=== PATIENT | female | born 1985 | race American Indian/Alaskan Native ===

== ENCOUNTER 2019-01-05 12:03 | Emergency (ER) | payer OTHER ==
[2019-01-05 12:14] VITALS: RESP 18; TEMP 98.7; O2SAT 99; BMI 34.7
[2019-01-05] MEDS ORDERED: Lidocaine 5% Patch TD STA (12:31)
--- NOTE | 2019-01-05 12:42 | ED PDOC ---
Arrival/HPI - General Chief Complaint: Upper Extremity Problem/Injury Time Seen by Provider: 01/05/19 12:03 Historian: Patient - History of Present Illness Narrative History of Present Illness (Text): 01/05/19 13:35 33 year old female with no significant PMH presents to the ED c/o left shoulder pain x 3 weeks. Pt works as a hole digger truck driver and states she pulled a muscle in her shoulder turning the steering wheel. Pain is worse with abduction and internal rotation of the left shoulder. Saw her PMD last week, who prescribed 800mg ibuprofen (last dose this morning), with mild relief. Pt is here requesting xray and orthopedic followup. Denies numbness, weakness, paresthesias, chest pain, SOB, palpitations, back pain, neck pain, or any other associated symptoms. Past Medical History - Provider Review Nursing Documentation Reviewed: Yes - Cardiac Hx Cardiac Disorders: No - Psychiatric Hx Substance Use: Yes Family/Social History - Physician Review Nursing Documentation Reviewed: Yes Family/Social History: No Known Family HX Smoking Status: Current Some Days Smoker Hx Alcohol Use: No Hx Substance Use: Yes Substance used: marijuana Allergies/Home Meds Allergies/Adverse Reactions: Allergies No Known Allergies Allergy (Verified 01/05/19 12:25) Review of Systems - Review of Systems Constitutional: Normal. absent: Fevers Eyes: Normal. absent: Vision Changes ENT: Normal. absent: Sore Throat, Sinus Congestion Respiratory: Normal. absent: SOB, Cough Cardiovascular: Normal. absent: Chest Pain, Palpitations Gastrointestinal: Normal. absent: Abdominal Pain, Nausea, Vomiting Genitourinary Female: Normal. absent: Dysuria, Frequency Musculoskeletal: Arthralgias. absent: Back Pain, Neck Pain Skin: Normal. absent: Rash, Cellulitis Neurological: Normal. absent: Headache, Dizziness, Focal Weakness, Disequilibrium Endocrine: Normal Hemo/Lymphatic: Normal Psychiatric: Normal Physical Exam Vital Signs Reviewed: Yes Vital Signs Temp Pulse Resp BP Pulse Ox 01/05/19 12:13 98.7 F 89 18 125/81 99 Temperature: Afebrile Blood Pressure: Normal Pulse: Regular Respiratory Rate: Normal Appearance: Positive for: Well-Appearing, Non-Toxic, Comfortable Pain Distress: None Mental Status: Positive for: Alert and Oriented X 3 - Systems Exam Head: Present: Atraumatic, Normocephalic Pupils: Present: PERRL Extroacular Muscles: Present: EOMI Conjunctiva: Present: Normal Mouth: Present: Moist Mucous Membranes Neck: Present: Normal Range of Motion. No: Meningeal Signs, MIDLINE TENDERNESS, Paraspinal Tenderness Respiratory/Chest: Present: Clear to Auscultation, Good Air Exchange. No: Respiratory Distress, Accessory Muscle Use Cardiovascular: Present: Regular Rate and Rhythm, Normal S1, S2, Peripheal Pulses Present. No: Murmurs Back: Present: Normal Inspection. No: CVA Tenderness, Midline Tenderness, Paraspinal Tenderness Upper Extremity: Present: Normal Inspection, NORMAL PULSES, Tenderness (anterior left shoulder and over left biceps tendon), Neurovascularly Intact, Capillary Refill < 2s, Other ((+) True Test, (+) Neers Test). No: Cyanosis, Edema, Normal ROM (decreased abduction and internal rotation of left shoulder), Swelling, Erythema, Temperature Abnormalties, Deformity Lower Extremity: Present: Normal ROM Neurological: Present: GCS=15, CN II-XII Intact, Speech Normal, Motor Func G rossly Intact, Normal Sensory Function, Gait Normal Skin: Present: Warm, Dry, Normal Color. No: Rashes, Laceration, Abscess Psychiatric: Present: Alert, Oriented x 3, Normal Insight, Normal Concentration, Normal Affect, Normal Mood Medical Decision Making ED Course and Treatment: Initial Plan: * Left shoulder XR * Tylenol * Lidoderm patch Xray negative for acute or chronic pathology. Physical exam findings suspicious for tendinopathy. Advised orthopedic and PMD followup. Will discharge with prescriptions to treat pain. Diagnostic testing results and plan of care discussed with patient. Strict instructions given regarding prescription use, importance of followup, and signs/symptoms to return to ER including numbness, weakness, paresthesias, chest pain, SOB, or any other new/worsening symptoms. Pt verbalized understanding of discussion. Patient is A&Ox3, ambulating with steady gait, with vital signs stable for discharge. - RAD Interpretation Narrative RAD Interpretations (Text): 01/05/19 14:30 Left Shoulder Xray: FINDINGS: BONES: Normal. No fracture. JOINTS: Normal. Glenohumeral and acromioclavicular joints preserved. No osteoarthritis. SOFT TISSUES: Normal. OTHER FINDINGS: None. IMPRESSION: Normal radiographs of the left shoulder. Disposition/Present on Arrival - Present on Arrival Any Indicators Present on Arrival: No History of DVT/PE: No History of Uncontrolled Diabetes: No Urinary Catheter: No History of Decub. Ulcer: No History Surgical Site Infection Following: None - Disposition Have Diagnosis and Disposition been Completed?: Yes Diagnosis: Tendonitis Disposition: HOME/ ROUTINE Disposition Time: 14:25 Patient Plan: Discharge Condition: IMPROVED Discharge Instructions (ExitCare): Tendonitis, Tendinopathy (DC) Additional Instructions: Ibuprofen every 8 hours with food as needed for pain Lidoderm patches daily, 12 hours on, 12 hours off No heavy lifting Followup with orthopedics within 2 days Followup with primary doctor within 2 days Return to ER with any new/worsening symptoms Prescriptions: Ibuprofen [Motrin Tab] 600 mg PO Q8H PRN #30 tab PRN Reason: Pain, Moderate (4-7) Lidocaine 5% [Lidoderm] 1 ea TD DAILY PRN #30 patch PRN Reason: Pain, Mild (1-3) Referrals: Chuck Rey MD [Primary Care Provider] - Follow up with primary Yudy Leiva MD [Staff Provider] - Follow up with primary Forms: [employer] (Iranian), WORK NOTE
--- NOTE | 2019-01-05 14:29 | RAD ---
Date of service: 01/05/2019 PROCEDURE: Radiographs of the Left Shoulder HISTORY: atraumatic pain, 3 weeks COMPARISON: No prior. FINDINGS: BONES: Normal. No fracture. JOINTS: Normal. Glenohumeral and acromioclavicular joints preserved. No osteoarthritis. SOFT TISSUES: Normal. OTHER FINDINGS: None. IMPRESSION: Normal radiographs of the left shoulder.
[2019-01-05 15:33] VITALS: BP 131/88; PULSE 78
== END 2019-01-05 15:00 | disposition home or self-care (01) ==
LOC: ED 12:03
DX: M75.92 Shoulder lesion, unspecified, left shoulder (principal)